=== PATIENT | male | born 1960 | race Caucasian/White ===

== ENCOUNTER → 2020-07-06 09:53 | Outpatient (BNVA) | payer MEDICARE, MEDICAID, SELFPAY | PROVIDERS: Family Provider Specialist; Visit Provider Specialist | DX: G54.0 Brachial plexus disorders (principal); G62.9 Polyneuropathy, unspecified | CPT/HCPCS: 99212 ==

== ENCOUNTER → 2021-07-05 09:29 | Outpatient (BNVA) | payer MEDICARE, MEDICAID, SELFPAY | PROVIDERS: Family Provider Specialist; Visit Provider Specialist | DX: G54.0 Brachial plexus disorders (principal); R20.0 Anesthesia of skin; R20.2 Paresthesia of skin; Z71.89 Other specified counseling | CPT/HCPCS: 80053; 84443; 85025; 99213; 99214 ==

== ENCOUNTER 2021-07-05 11:38 | Outpatient (CLI) | payer MEDICARE, MEDICAID, SELFPAY ==
[2021-07-05 12:46] LABS: Basophils # 0.1 10^3/uL (0.0-0.1); Basophils % 0.4 %; Eosinophils # 0.1 10^3/uL (0.0-0.8); Eosinophils % 0.9 %; Hemoglobin 15.1 g/dL (11.7-16.6); Lymphocytes # 4.7 10^3/uL (0.8-4.8); Lymphocytes % 40.4 %; Mean Corpuscular HGB Conc 32.1 g/dL (30.0-36.0); Mean Corpuscular Hemoglobin 27.7 pg (28.0-34.0); Mean Corpuscular Volume 86.1 fl (80-94); Mean Platelet Volume 9.9 fL (7.4-10.4); Monocytes # 0.9 10^3/uL (0.2-0.9); Monocytes % 7.3 %; Neutrophils # 5.89 10^3/uL (1.8-7.7); Neutrophils % 50.7 %; Nucleated Red Blood Cells % 0 %; Platelet Count 277 10^3/cmm (130-400); Red Blood Count 5.46 10^6/uL (4.1-5.3); White Blood Count 11.6 10^3/uL (4.0-10.0)
[2021-07-05 13:23] LABS: Alanine Aminotransferase 27 U/L (0-41); Alkaline Phosphatase 68 IU/L (40-130); Anion Gap 18.8 (5-19); Aspartate Amino Transferase 17 U/L (0-40); Blood Urea Nitrogen 17 mg/dL (6-20); Calcium 9.1 mg/dL (8.5-10.5); Carbon Dioxide 23 mmol/L (22-29); Chloride 100 mmol/L (98-107); Globulin 3.7 g/dL (1.3-4.6); Glomerular Filtration Rate 98.9 mL/min (90-130); Glucose 105 mg/dL (65-115); Osmolality Calculated 288 mOsm/kg (285-295); Potassium 3.8 mmol/L (3.5-5.1); Sodium 138 mmol/L (136-145); Thyroid Stimulating Hormone 2.56 uIU/mL (0.27-4.20); Total Bilirubin 0.2 mg/dL (0.15-1.2); Total Protein 7.7 g/dL (6.6-8.7)
== END 2021-07-05 11:39 | disposition home or self-care (01) ==
LOC: LAB 11:46
PROVIDERS: Visit Provider Specialist
DX: R20.0 Anesthesia of skin (principal); R20.2 Paresthesia of skin
CPT/HCPCS: 80053; 84443; 85025

== ENCOUNTER → 2022-07-04 10:08 | Outpatient (BNVA) | payer MEDICARE, MEDICAID, SELFPAY | PROVIDERS: Absent Provider Specialist; Visit Provider Specialist | DX: M62.522 Muscle wasting and atrophy, not elsewhere classified, left upper arm (principal); Z12.11 Encounter for screening for malignant neoplasm of colon; G54.0 Brachial plexus disorders | CPT/HCPCS: 99213 ==

== ENCOUNTER → 2022-07-19 09:59 | Outpatient (BNVA) | payer MEDICARE, MEDICAID, SELFPAY | PROVIDERS: Visit Provider Surgery | DX: Z12.11 Encounter for screening for malignant neoplasm of colon (principal) | CPT/HCPCS: 99024 ==

== ENCOUNTER → 2023-07-09 09:57 | Outpatient (BNVA) | payer MEDICARE, MEDICAID, SELFPAY | PROVIDERS: Visit Provider Specialist | DX: G54.0 Brachial plexus disorders (principal); R29.90 Unspecified symptoms and signs involving the nervous system | CPT/HCPCS: 99213 ==

== ENCOUNTER → 2024-07-08 10:24 | Outpatient (BNVA) | payer MEDICARE, MEDICAID, SELFPAY | PROVIDERS: Visit Provider Specialist | DX: G54.0 Brachial plexus disorders (principal); R29.90 Unspecified symptoms and signs involving the nervous system; Z12.11 Encounter for screening for malignant neoplasm of colon; R63.4 Abnormal weight loss; R39.198 Other difficulties with micturition; R39.12 Poor urinary stream; Z68.1 Body mass index [BMI] 19.9 or less, adult | CPT/HCPCS: 36415; 80053; 83516; 84153; 85025; 99213; 99214 ==

== ENCOUNTER → 2024-07-20 15:23 | Outpatient (BNVA) | payer MEDICARE, MEDICAID, SELFPAY | PROVIDERS: Referring Provider Specialist; Visit Provider Surgery | DX: Z12.11 Encounter for screening for malignant neoplasm of colon (principal) | CPT/HCPCS: 99024; 99204 ==